=== PATIENT | male | born 1945 | race Caucasian/White ===

== ENCOUNTER 2017-02-13 09:15 | Day surgery (SDC) | payer MEDICARE, BC | END 2017-02-13 18:22 | disposition home or self-care (01) | DX: I25.118 Atherosclerotic heart disease of native coronary artery with other forms of angina pectoris (principal); I35.0 Nonrheumatic aortic (valve) stenosis; E78.4 Other hyperlipidemia; F17.210 Nicotine dependence, cigarettes, uncomplicated; Z85.46 Personal history of malignant neoplasm of prostate; Z96.659 Presence of unspecified artificial knee joint; Z85.118 Personal history of other malignant neoplasm of bronchus and lung; Z85.53 Personal history of malignant neoplasm of renal pelvis; Z88.8 Allergy status to other drugs, medicaments and biological substances; Z79.82 Long term (current) use of aspirin; Z79.52 Long term (current) use of systemic steroids ==